=== PATIENT | male | born 1995 | race African-American/Black ===

== ENCOUNTER 2017-02-08 16:48 | Emergency (ER) | payer SELFPAY | END 2017-02-08 17:10 | disposition home or self-care (01) | LOC: ER 16:48 | DX: S39.012A Strain of muscle, fascia and tendon of lower back, initial encounter (principal); V49.50XA Passenger injured in collision with unspecified motor vehicles in traffic accident, initial encounter ==

== ENCOUNTER 2017-02-17 15:54 | Emergency (ER) | payer SELFPAY | END 2017-02-17 16:54 | disposition home or self-care (01) | LOC: ER 15:54 | DX: S33.5XXA Sprain of ligaments of lumbar spine, initial encounter (principal); V89.2XXA Person injured in unspecified motor-vehicle accident, traffic, initial encounter ==